=== PATIENT | male | born 1925 | race Caucasian/White ===

== ENCOUNTER 2016-07-30 23:29 | Inpatient (IN) | payer MEDICARE, OTHER ==
--- NOTE | ~2016-07-30 | DS ---
Unit #: [id number] #: [id number] Patient: JOHN SANTOS [id number] [address] [address] [id number] MR#: [id number] NAME: JOHN SANTOS ROOM: 338 Age: 89 Sex: M Admission Date: 07/31/2016 : 1925 Discharge Date: 08/03/2016 Attending Physician: Paul Juarez M.D. Primary Care Physician: Roberto Elliott M.D. DISCHARGE SUMMARY DISCHARGE DIAGNOSES 1. Sustained ventricular tachycardia. 2. 2D echocardiogram 07/31/2016 revealed severe dilated cardiomyopathy with a left ventricular ejection fraction of 15% to 20%. Inferior wall akinesis. Moderately dilated left ventricle. Mildly dilated left atrium. Mildly enlarged right atrial size. Pacemaker lead noted. No evidence of pericardial effusion. 3. Coronary artery disease, status post cardiac catheterization on 08/02/2016 revealed left main normal. Left anterior descending with long stent extending from the ostium of the left anterior descending into the mid segment, widely patent. Distal half of the left anterior descending normal. First diagonal branch of left anterior descending caught in stent care home with a 90% ostial stenosis with the distal vessel being very small in caliber and non-bypassable. Second diagonal branch and septal perforators normal. Left circumflex normal. Right coronary artery with chronic occlusion. Dominant right coronary artery occluded at origin. Distal right coronary artery PDA and PLV branch filled by retrograde left to right collaterals. PDA and PLV branches will be considered adequate targets for bypass graft. Ramus normal. 4. 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 5. Previous percutaneous coronary intervention and stent to the proximal left anterior descending in 2002. 6. Permanent atrial fibrillation on chronic anticoagulation with Coumadin. Coumadin currently on hold. 7. History of permanent pacemaker secondary to sick sinus syndrome. 8. Hypertension. 9. Hyperlipidemia. 10. Hypothyroidism. 11. Chronic kidney disease. 12. Reformed tobacco abuse. DISCHARGE MEDICATIONS 1. Amiodarone 400 mg p.o. b.i.d. x5 days, then 200 mg p.o. b.i.d. 2. Tylenol 1000 mg p.o. p.r.n. for pain. 3. Zofran 4 mg IV q.4 p.r.n. for nausea. 4. Metoprolol succinate 50 mg p.o. b.i.d. 5. Atorvastatin 10 mg p.o. at bedtime. 6. Allopurinol 300 mg p.o. daily. 7. Aspirin 81 mg p.o. daily. 8. Percocet 5/325 mg, one to two tablets p.o. q.4 hours p.r.n. for pain. 9. Protonix 40 mg p.o. daily. 10. Levothyroxine 75 mcg p.o. daily. Unit #: [id number] #: [id number] Patient: JOHN SANTOS 11. Nitroglycerin 0.4 mg sublingual as needed for chest pain. HOSPITAL COURSE This is an 89-year-old white male well known to Dr. Juarez with a past medical history of coronary artery disease with old inferior lateral wall myocardial infarction, known to have a chronic occlusion of the right coronary artery. The patient had a PCI and stent in the LAD in 2002. The LAD was patent per cardiac catheterization in 2012. He does have a history of sick sinus syndrome and permanent pacemaker, permanent atrial fibrillation, previously on Coumadin, hypertension, hyperlipidemia, hypothyroidism and chronic kidney disease. He presented to [facility] on 07/31/2016, with complaints of a near syncopal episode. The patient was very lightheaded and had an unsteady gait. He also was short of breath. He came close to loss of consciousness. EMS was dispatched and he was brought to the emergency department. Initial labs revealed a creatinine of 1.7 with a BUN of 20. Potassium was 4.2. Cardiac enzymes were negative. BNP was 187 and there was no evidence of congestive heart failure. Chest x-ray reveals moderate cardiac enlargement but nothing acute. CT of the head revealed no acute findings. Electrocardiogram revealed a ventricular paced rhythm with underlying atrial fibrillation. His permanent pacemaker was interrogated and revealed a seven minute episode of sustained ventricular tachycardia at 227 beats/minute. The patient was place don an amiodarone drip. He was recommended for a cardiac catheterization. Cardiac catheterization reveals a chronic occlusion of the right coronary artery. There was a patent stent in the mid LAD. There was a small first diagonal branch cut in stent care home with a 90% ostial stenosis. Ejection fraction was calculated at 10% to 15%. Metoprolol was increased. His amiodarone was switched to oral dosing. Electrophysiology was consulted and the patient is scheduled to have an upgrade of permanent pacemaker to an AICD. He will be transferred to [facility] later today for AICD. Dr. Neff is the accepting physician. The plan has been discussed with the patient and he verbalizes understanding. Labs currently reveal a creatinine of 1.5 with a BUN of 21. Electrolytes are stable. Cardiac enzymes were mildly elevated at 0.13 but decreased to 0.10. TSH is normal at 1.89. The patient's INR is 1.3. No Lovenox has been given and his Coumadin is on hold. DIAGNOSTIC STUDIES LABORATORY: White blood cell count 8, hemoglobin 14.8, hematocrit 44.6, platelets 167, sodium 135, potassium 3.9, chloride 106, CO2 25, BUN 21, creatinine 1.5, glucose 97. Troponin 0.13 and 0.10. BNP 187, total cholesterol 146, triglycerides 112, LDL 89, HDL 35, TSH 1.89, INR 1.3. IMAGING: CT of the head without contrast reveals no acute findings. Mild chronic ischemic changes in the deep white matter bilaterally. Paranasal sinusitis. Chest x-ray reveals no acute findings. Moderate cardiac enlargement. CARDIOVASCULAR: Telemetry and EKG reveals an AV paced rhythm. PHYSICAL EXAMINATION VITAL SIGNS: Temperature 97.9, pulse 74, blood pressure 142/84. CONSTITUTIONAL: This is an 89-year-old white male in no acute distress. SKIN: Warm and dry. NECK: Supple. No jugular venous distention. No hepatojugular reflux. Unit #: [id number] #: [id number] Patient: JOHN SANTOS Normal carotid upstrokes. No carotid bruits auscultated. HEART: S1 and S2. No murmurs, rubs or gallops. LUNGS: Bilateral breath sounds have good air entry throughout all lung fitzgerald. Respirations even and unlabored. No rales, rhonchi, or wheezes. ABDOMEN: Soft, nontender, and nondistended. Positive bowel sounds auscultated x4 quadrants. No ascites noted. EXTREMITIES: Bilateral extremities have no pretibial pitting edema. DP and PT pulses 2+. Capillary refill less than three seconds. Calf site without hematoma. DISCHARGE INSTRUCTIONS 1. The patient will be transferred to [facility] today for a pacemaker exchange and AICD. 2. He is currently on oral amiodarone and beta charles for ventricular tachycardia. 3. He is on an aspirin and statin. No FRANCESCA or ARB has been prescribed due to chronic kidney disease. 4. The patient's INR is 1.3 off Coumadin. 5. He is stable for transfer and will be followed by our partner, Dr. Carballo, upon arrival to [facility]. Dictated by... Nataly Rock APRN for Per Castañeda TD: 08/03/2016 11:37 JOB #: [id number] DISCHARGE SUMMARY Page 1 of 1 X X DISCHARGE SUMMARY
--- NOTE | ~2016-07-30 | CR72 ---
[facility] A Service of [facility] RADIOLOGY TEXT RESULTS PATIENT: JOHN SANTOS LOCATION: [facility] 338- : [birth year] UNIT #: [id number] AGE: [address]: Paul Juarez MD SEX: M ORDER DR: [id number] [facility] [address] [facility]. [place], [place] [address] [id number] I MR#: [id number] #: [id number] NAME: JOHN SANTOS. : 1925 SEX: M STUDY DATE/TIME: 07/30/2016 22:03 UNIT: [address] ROOM: [facility] STUDY DESCRIPTION: CR Chest Single View Portable Attending Physician: Paul Juarez M.D. Ordering Physician: Serene Amaya M.D. Primary Care Physician: Roberto Elliott M.D. MEDICAL IMAGING REPORT This report is preliminary unless electronic signature is present EXAM Portable chest HISTORY Shortness of air and syncope today. FINDINGS Moderate cardiac enlargement. Normal pulmonary vascularity. No pulmonary infiltrates or effusions. Left subclavian pacer leads extend into the right atrium and right ventricle. Mild left lower thoracic curve. IMPRESSION 1. No acute findings. 2. Moderate cardiac enlargement. Dictated by... Cristofer Larry M.D. THIS IS AN ELECTRONICALLY VERIFIED REPORT Cristofer Larry M.D. at 07/31/2016 4:00 PM Miguel Angel TD: 07/31/2016 09:14 JOB #: [id number] MEDICAL IMAGING REPORT Page 1 of 1 COPY
--- NOTE | ~2016-07-30 | EKG ---
PATIENT: JOHN SANTOS UNIT #: [id number] Ventricular Rate: 69 BPM Atrial Rate: 70 BPM QRS Duration: 182 ms Q-T Interval: 532 ms QTC Calculation(Bezet): 570 ms Calculated R [place]: -67 degrees Calculated T [place]: 48 degrees Diagnosis Line: Ventricular-paced rhythm Diagnosis Line: Abnormal ECG Diagnosis Line: No previous ECGs available Diagnosis Line: Confirmed by TRISTEN ROMAN MD ([id number]) on 08/01/2016 Diagnosis Line: 9:11:28 PM INTERPRETING MD: JESSIE ARORA
--- NOTE | ~2016-07-30 | EKG ---
PATIENT: JOHN SANTOS UNIT #: [id number] Ventricular Rate: 68 BPM Atrial Rate: 68 BPM P-R Interval: 80 ms QRS Duration: 190 ms Q-T Interval: 508 ms QTC Calculation(Bezet): 540 ms P [place]: 111 degrees Calculated R [place]: -39 degrees Calculated T [place]: 136 degrees Diagnosis Line: Electronic ventricular pacemaker Diagnosis Line: When compared with ECG of 30-JUL-2016 21:30, Diagnosis Line: (unconfirmed) Diagnosis Line: No significant change was found Diagnosis Line: Confirmed by JOSE MIXON MD ([id number]) on 07/31/2016 Diagnosis Line: 10:33:24 PM INTERPRETING MD: ORAL ARORA
--- NOTE | ~2016-07-30 | HP ---
Unit #: [id number] #: [id number] Patient: JOHN SANTOS [id number] [address] [place], [place] [address] [id number] I MR#: [id number] NAME: JOHN SANTOS. ROOM: 338 Age: 89 Sex: M Admission Date: 07/31/2016 : 1925 Attending Physician: Paul Juarez M.D. Primary Care Physician: Roberto Elliott M.D. HISTORY AND PHYSICAL HISTORY OF PRESENT ILLNESS This is an 89-year-old white male who is well known to Dr. Juarez who has a history of having an old inferolateral wall IN and found to have a chronic occlusion in the RCA and had PCI and stent to the proximal LAD back in 2002. Patient's last cardiac cath was back in 2012 that showed LVEF was down to 20% to 30%. He had distal left main 50% stenosis, his LAD stent was patent, and he continued to show the chronic RCA occlusion. He did have collaterals. He has a permanent pacemaker. He has permanent atrial fibrillation and has been on anticoagulation. He has hypothyroidism, hypertension, and chronic kidney disease. Patient came in with a near syncopal episode. According to patient, he took his garbage out yesterday afternoon and was walking back. He said he began to feel very lightheaded and had an unsteady gait. He had to sit down in his garage. He said then he started to feel very dyspneic. He said he continued to feel lightheaded and weak and with the dyspnea, he said he thought he was going to pass out or was feeling very poorly. He managed to get some nitroglycerin out of his pocket. He took one, and over the course of about five to 10 minutes, his overall status improved. In the meantime, he had called 911, and also his son had come to the home. He was brought in for further evaluation and management. He denies having any chest pain or pain in his neck, bilateral jaw, shoulders, arms, or elbows. He did not feel any palpitations. He did say that when he was having the spell, he could tell he was trying to urinate and was unable to control his voiding but did not have any bowel movement or any seizure activity. He has not had any recent cough, fever, or chills and no abdominal or back pain. Patient was admitted for further evaluation and workup. PAST MEDICAL HISTORY 1. Old inferolateral wall IN with chronic occlusion in the RCA, status post PCI and stent to the proximal LAD in 2002. 2. On last cardiac cath in 2012, LVEF was down to 20% to 30% with other findings of distal left main 50% stenosis, LAD stent was patent, circumflex with no significant narrowing, and the RCA was chronically occluded with collaterals. 3. Permanent atrial fibrillation, on Coumadin. 4. Permanent pacemaker secondary to sick sinus syndrome. 5. Hypothyroidism. 6. Hypertension. 7. Hyperlipidemia. 8. Reformed smoker. 9. Chronic kidney disease. Unit #: [id number] #: [id number] Patient: JOHN SANTOS PAST SURGICAL HISTORY 1. Status post PCI and stent to the proximal LAD in 2002. 2. Bilateral cataracts. 3. Permanent pacemaker insertion. HOME MEDICATIONS 1. Warfarin 2.5 mg 1 tablet on Saturday, Saturday, and Saturday. 2. Levothyroxine 75 mcg p.o. daily. 3. Metoprolol 50 mg p.o. in the morning. 4. Metoprolol 25 mg in the evening. 5. Nitrostat 0.4 mg sublingual p.r.n. for chest pain. 6. Omeprazole 20 mg p.o. daily. 7. Simvastatin 20 mg p.o. daily. 8. Acetaminophen 1000 mg p.o. at bedtime. 9. Allopurinol 300 mg p.o. daily. ALLERGIES No known drug allergies. SOCIAL HISTORY Patient lives in his home alone. He was about three years ago. He stays fairly active for his age. He continues to drive. He does his yard work and even pushed a small lawnmower about four days ago without any difficulty. He quit smoking about 40 years ago. No alcohol or illicit drug abuse. FAMILY HISTORY Noncontributory. REVIEW OF SYSTEMS CONSTITUTIONAL: Denies fever or chills. No recent weight gain or weight loss. HEENT: Denies headache but has dizziness. No visual or hearing changes. NECK: No lymphadenopathy or thyromegaly and no difficulty swallowing. CARDIOVASCULAR: Denies chest pain, denies palpitations, and denies increased lower extremity edema. PULMONARY: Shortness of breath with the episode. Denies paroxysmal nocturnal dyspnea and orthopnea. GASTROINTESTINAL: Denies nausea, vomiting, diarrhea, or abdominal pain. NEUROLOGICAL: No focal weakness. PHYSICAL EXAMINATION GENERAL: On exam, Mr. Santos is an 89-year-old white male in no acute respiratory distress. He is awake, alert, and oriented. VITAL SIGNS: Blood pressure lying is 120/62 with a heart rate of 69. Blood pressure sitting 125/62 with a heart rate of 69. Blood pressure 125/62 with a heart rate of 69. Respirations 18, temperature 97.8, and O2 saturations 98% on room air. NECK: Trachea midline. No thyromegaly or lymphadenopathy. Normal carotid upstrokes. No jugular venous distention. HEART: S1 and S2, regular rate and rhythm. Systolic murmur over aortic region, left sternal border. LUNGS: Diminished, otherwise clear. ABDOMEN: Soft and nontender. Positive bowel sounds present. No hepatosplenomegaly. EXTREMITIES: Pedal pulses are palpable. No pedal edema. Unit #: [id number] #: [id number] Patient: JOHN SANTOS DIAGNOSTIC STUDIES LABORATORY: Glucose is 118, BUN 20, creatinine 1.7, eGFR 35, sodium 142, potassium 4.2, chloride 108, CO2 of 24, and calcium is 9.2. WBC 6.6, hemoglobin 14.6, hematocrit 44.3, and platelets 169,000. Initial cardiac enzymes: CK-MB is 1.7 and troponin less than 0.05; CK-MB is 4.3 and troponin less than 0.05. BNP is 187. IMAGING: Chest x-ray shows no acute finding and moderate cardiac enlargement. CT of the head without contrast shows nothing acute. CARDIOLOGY: EKG shows ventricular paced rhythm and underlying probable atrial fibrillation. IMPRESSION 1. Near syncope of questionable etiology, questionable ventricular arrhythmias. 2. Dyspnea. 3. History of chronic systolic congestive heart failure with left ventricular ejection fraction of 20% to 30% on last cardiac catheterization in 2012. 4. 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 5. Permanent atrial fibrillation, on anticoagulation. 6. Permanent pacemaker. 7. Hypothyroidism. 8. Hypertension. 9. Hyperlipidemia. 10. Chronic kidney disease. 11. Reformed smoker. PLAN 1. Will have patient's permanent pacemaker interrogated to evaluate for any ventricular arrhythmias that occurred during this episode. 2. Continue to monitor orthostatic vital signs which so far have been unremarkable. 3. Will do a 2D echo to reevaluate LV function and valves. The patient's last echo was documented back in 2012. 4. [address] Juarez examined and interviewed the patient, he feels that his symptoms may have been precipitated by some kind of ventricular arrhythmia or it could be secondary to some progression of his left main stenosis that was found to be 50% in 2013 cath. 5. On exam, there are no signs or symptoms of acute congestive heart failure. 6. Continue the patient on his current medications including his beta charles and statin. 7. Will obtain a fasting lipid profile and TSH and evaluate. 8. Will further evaluate. 9. Patient's INR is 2.2, so he is fully anticoagulated for his atrial fibrillation and will not need any Lovenox due to him being in his therapeutic range. Will continue to monitor. 10. Will continue the patient on nitrate and also on aspirin. 11. Further recommendations pending per Dr. Juarez. 1. Dictated by Erin Neumann A.P.R.N. for Paul Juarez M.D. Unit #: [id number] #: [id number] Patient: JOHN SANTOS CEC/am TD: 07/31/2016 18:32 JOB #: [id number] HISTORY AND PHYSICAL Page 1 of 1 X Erin Neumann APRN HISTORY AND PHYSICAL
--- NOTE | ~2016-07-30 | EKG ---
PATIENT: JOHN SANTOS UNIT #: [id number] Ventricular Rate: 79 BPM Atrial Rate: 79 BPM P-R Interval: 146 ms QRS Duration: 240 ms Q-T Interval: 542 ms QTC Calculation(Bezet): 621 ms Calculated R [place]: 151 degrees Calculated T [place]: 123 degrees Diagnosis Line: AV sequential or dual chamber electronic pacemaker Diagnosis Line: When compared with ECG of 31-JUL-2016 14:17, Diagnosis Line: Vent. rate has increased BY 11 BPM Diagnosis Line: Confirmed by RC ESTES MD ([id number]) on Diagnosis Line: 08/05/2016 2:07:58 PM INTERPRETING MD: GENET
--- NOTE | ~2016-07-30 | CT71 ---
[facility] A Service of [facility] / [facility] RADIOLOGY TEXT RESULTS PATIENT: JOHN SANTOS LOCATION: [facility] 338- : [birth year] UNIT #: [id number] AGE: [address]: Paul Juarez MD SEX: M ORDER DR: [id number] [address] [place], [place] [address] [id number] I MR#: [id number] Acc #: [id number] NAME: JOHN SANTOS. : 1925 SEX: M STUDY DATE/TIME: 07/30/2016 22:07 UNIT: [address] ROOM: [facility] STUDY DESCRIPTION: CT Head Wo Contrast Attending Physician: Paul Juarez M.D. Ordering Physician: Serene Amaya M.D. Primary Care Physician: Roberto Elliott M.D. MEDICAL IMAGING REPORT This report is preliminary unless electronic signature is present EXAM CT brain without contrast HISTORY Syncope today. Weakness. TECHNIQUE This CT exam was performed with one or more of the following radiation dose reduction techniques: automatic exposure control, adjustment of mA and/or kV according to patient size, and iterative reconstruction. FINDINGS CT brain without contrast demonstrates mild generalized cerebral and cerebellar cortical atrophy and mild chronic ischemic changes in the deep white matter bilaterally. No intracranial hemorrhage, mass or edema. No midline shift or focal atrophy or extraaxial fluid collection. Extensive mucosal thickening in left ethmoid air cells and moderate mucosal thickening in right ethmoid air cells and in the left maxillary sinus and mild mucosal thickening in the left frontal sinus. IMPRESSION 1. No acute intracranial findings. 2. Mild chronic ischemic changes in the deep white matter bilaterally. 3. Paranasal sinusitis. Dictated by... Cristofer Larry M.D. THIS IS AN ELECTRONICALLY VERIFIED REPORT Cristofer Larry M.D. at 07/31/2016 3:59 PM Miguel Angel TD: 07/31/2016 09:01 [facility] A Service of [facility] & [facility] RADIOLOGY TEXT RESULTS PATIENT: JOHN SANTOS LOCATION: [facility] 338-01 : [birth year] UNIT #: [id number] AGE: [address]: Paul Juarez MD SEX: M ORDER DR: JOB #: [id number] MEDICAL IMAGING REPORT Page 1 of 1 COPY
--- NOTE | ~2016-07-30 | EKG ---
PATIENT: JOHN SANTOS UNIT #: [id number] Ventricular Rate: 77 BPM Atrial Rate: 77 BPM P-R Interval: 154 ms QRS Duration: 180 ms Q-T Interval: 540 ms QTC Calculation(Bezet): 611 ms P [place]: 59 degrees Calculated R [place]: 146 degrees Calculated T [place]: 92 degrees Diagnosis Line: AV sequential or dual chamber electronic pacemaker Diagnosis Line: When compared with ECG of 01-AUG-2016 06:11, Diagnosis Line: (unconfirmed) Diagnosis Line: Vent. rate has decreased BY 2 BPM Diagnosis Line: Confirmed by JOSE MIXON MD ([id number]) on 08/07/2016 Diagnosis Line: 10:21:59 PM INTERPRETING MD: ORAL ARORA
[2016-07-30 22:39] LABS: BASOPHIL# 0.1 X10e3 (0-0.3); EOSINOPHIL# 0.4 X10e3 (0-0.7); EOSINOPHIL% 3.8 % (0.0-7.0); HEMATOCRIT 45.5 % (38.0-50.0); HEMOGLOBIN 14.9 gm/dL (13.0-16.0); LYMPHOCYTE# 1.3 X10e3 (1.0-3.5); LYMPHOCYTE% 11.9 % (17.0-45.0); MEAN CORPUSCULAR HEMOGLOBIN 28.9 PG (28-34); MEAN CORPUSCULAR HGB CONC 32.8 g/dL (30-36); MEAN PLATELET VOLUME 9.1 FL (6.5-11.5); MONOCYTE# 0.8 X10e3 (0-1.0); MONOCYTE% 7.3 % (3.0-12.0); NEUTROPHIL# 8.5 X10e3 (1.5-7.1); PLATELET COUNT 183 X10e3 (140-420); RED BLOOD COUNT 5.17 X10e (3.90-5.60); RED CELL DISTRIBUTION WIDTH 15.7 % (11.0-15.5); WHITE BLOOD COUNT 11.2 X10e3 (4.0-10.5)
[2016-07-30 22:40] LABS: DIFF IND NO
[2016-07-30 22:57] LABS: INR 2.3; PROTHROMBIN TIME (PATIENT) 25.2 SECONDS (9.6-11.5)
[2016-07-30 23:10] LABS: BUN/CREATININE RATIO 11.76; CALCIUM SERUM 9.2 mg/dL (8.4-10.2); CREATININE SERUM 1.7 mg/dL (0.6-1.4); POTASSIUM 4.2 mmol/L (3.5-5.1)
[2016-07-30 23:10] LABS: POC - CKMB 4.3 ng/mL (0.0-7.9); POC - TROPONIN <0.05 ng/mL (<=0.05)
[~2016-07-30 23:29] MED LIST: ASPIRIN; CARDIZEM CD; COUMADIN; CRESTOR; LORTAB 5/500 TA1 TA1 PO; METOPROLOL SUCC25 MG PO; METOPROLOL TART25 MG PO; NITROGLYGERIN0.4 MG SL; SYNTHROID; ZOCOR PO; ZYLOPRIM
[2016-07-30] MEDS ORDERED: ZYLOPRIM PO (23:48)
[2016-07-30] MEDS ORDERED: JANTOVEN2.5 MG PO (23:49)
[2016-07-30] MEDS ORDERED: LEVOTHYROXINE75 MCG PO (23:50)
[2016-07-30] MEDS ORDERED: METOPROLOL SUCC25 MG PO (23:51)
[2016-07-30] MEDS ORDERED: METOPROLOL SUCC50 MG PO (23:51)
[2016-07-30] MEDS ORDERED: NITROSTAT0.4 MG SL (23:52)
[2016-07-30] MEDS ORDERED: OMEPRAZOLE20 M2 PO (23:52)
[2016-07-30] MEDS ORDERED: SIMVASTATIN20 MG PO (23:53)
[2016-07-30] MEDS ORDERED: ACETAMINOPHEN PO (23:54)
[2016-07-31] MEDS ORDERED: ALLOPURINOL300 MG PO (00:43)
[2016-07-31 00:49] LABS: POC - CKMB 1.7 ng/mL (0.0-7.9); POC - TROPONIN <0.05 ng/mL (<=0.05)
[2016-07-31 10:53] LABS: BASOPHIL# 0.1 X10e3 (0-0.3); BASOPHIL% 1.1 % (0-2.5); EOSINOPHIL# 0.4 X10e3 (0-0.7); EOSINOPHIL% 6.7 % (0.0-7.0); HEMATOCRIT 44.3 % (38.0-50.0); HEMOGLOBIN 14.6 gm/dL (13.0-16.0); LYMPHOCYTE# 1.6 X10e3 (1.0-3.5); LYMPHOCYTE% 23.9 % (17.0-45.0); MEAN CELL VOLUME 87.8 FL (83-96); MEAN PLATELET VOLUME 9.4 FL (6.5-11.5); MONOCYTE# 0.5 X10e3 (0-1.0); MONOCYTE% 7.3 % (3.0-12.0); PLATELET COUNT 169 X10e3 (140-420); RED BLOOD COUNT 5.05 X10e (3.90-5.60); RED CELL DISTRIBUTION WIDTH 15.7 % (11.0-15.5); WHITE BLOOD COUNT 6.6 X10e3 (4.0-10.5)
[2016-07-31 11:05] LABS: DIFF IND NO
[2016-07-31 11:10] LABS: INR 2.2; PROTHROMBIN TIME (PATIENT) 23.3 SECONDS (9.6-11.5)
[2016-07-31 11:53] LABS: %MB 4.4 % (0.0-4.0); MB 5.9 ng/ml
[2016-08-01 06:32] LABS: HEMATOCRIT 43.9 % (38.0-50.0); HEMOGLOBIN 14.4 gm/dL (13.0-16.0); MEAN CELL VOLUME 88.6 FL (83-96); MEAN CORPUSCULAR HGB CONC 32.7 g/dL (30-36); MEAN PLATELET VOLUME 9.5 FL (6.5-11.5); RED BLOOD COUNT 4.95 X10e (3.90-5.60); RED CELL DISTRIBUTION WIDTH 15.4 % (11.0-15.5); WHITE BLOOD COUNT 6.5 X10e3 (4.0-10.5)
[2016-08-01 06:51] LABS: INR 1.7; PROTHROMBIN TIME (PATIENT) 18.7 SECONDS (9.6-11.5)
[2016-08-01 07:04] LABS: BUN/CREATININE RATIO 11.33; CALCIUM SERUM 8.6 mg/dL (8.4-10.2); CREATININE SERUM 1.5 mg/dL (0.6-1.4); GLOM FILT RATE Estimated 40.7 mL/min (>60); MAGNESIUM 1.9 mg/dL (1.6-3.0); POTASSIUM 3.5 mmol/L (3.5-5.1)
[2016-08-01 07:08] LABS: CHOLESTEROL 146 mg/dL (0-200); HDL CHOLESTEROL 35 mg/dL (29-75); LDL CHOLESTEROL 89 mg/dL (-130); LDL/HDL RATIO 3 RATIO (0-4); TRIGLYCERIDES 112 mg/dL (10-160)
[2016-08-01 07:23] LABS: %MB 3.2 % (0.0-4.0); MB 4.5 ng/ml
[2016-08-02 06:31] LABS: HEMATOCRIT 45.1 % (38.0-50.0); HEMOGLOBIN 14.6 gm/dL (13.0-16.0); MEAN CELL VOLUME 88.1 FL (83-96); MEAN CORPUSCULAR HEMOGLOBIN 28.6 PG (28-34); MEAN CORPUSCULAR HGB CONC 32.5 g/dL (30-36); MEAN PLATELET VOLUME 9.8 FL (6.5-11.5); RED BLOOD COUNT 5.12 X10e (3.90-5.60); RED CELL DISTRIBUTION WIDTH 15.8 % (11.0-15.5); WHITE BLOOD COUNT 8.2 X10e3 (4.0-10.5)
[2016-08-02 06:54] LABS: INR 1.5; PARTIAL THROMBOPLASTIN TIME 30.3 SECONDS (23.5-31.3); PROTHROMBIN TIME (PATIENT) 15.9 SECONDS (9.6-11.5)
[2016-08-02 07:11] LABS: BUN/CREATININE RATIO 13.57; CREATININE SERUM 1.4 mg/dL (0.6-1.4); GLOM FILT RATE Estimated 44.2 mL/min (>60); POTASSIUM 3.8 mmol/L (3.5-5.1)
[2016-08-03 07:06] LABS: HEMATOCRIT 44.6 % (38.0-50.0); HEMOGLOBIN 14.8 gm/dL (13.0-16.0); MEAN CELL VOLUME 87.8 FL (83-96); MEAN CORPUSCULAR HEMOGLOBIN 29.2 PG (28-34); MEAN CORPUSCULAR HGB CONC 33.3 g/dL (30-36); MEAN PLATELET VOLUME 9.6 FL (6.5-11.5); RED BLOOD COUNT 5.08 X10e (3.90-5.60); RED CELL DISTRIBUTION WIDTH 15.3 % (11.0-15.5)
[2016-08-03 07:15] LABS: INR 1.3; PROTHROMBIN TIME (PATIENT) 14.3 SECONDS (9.6-11.5)
[2016-08-03 08:01] LABS: CREATININE SERUM 1.5 mg/dL (0.6-1.4); GLOM FILT RATE Estimated 40.7 mL/min (>60); POTASSIUM 3.9 mmol/L (3.5-5.1)
== END 2016-08-03 17:02 | DRG 287 ==
LOC: CED 23:29 → CEDOF 07-31 00:35 → C3A PCU 07-31 01:38
PROVIDERS: Emergency Medicine; Internal Medicine Cardiovascular Disease; Nurse Practitioner
PROC: B24BZZZ Ultrasonography of Heart with Aorta (ICD-10-PCS; 2016-07-31)
PROC: 4A023N7 Measurement of Cardiac Sampling and Pressure, Left Heart, Percutaneous Approach (ICD-10-PCS; principal; 2016-08-02)
PROC: B215YZZ Fluoroscopy of Left Heart using Other Contrast (ICD-10-PCS; 2016-08-02)
PROC: B211YZZ Fluoroscopy of Multiple Coronary Arteries using Other Contrast (ICD-10-PCS; 2016-08-02)
DX: I47.2 Ventricular tachycardia (principal); I42.0 Dilated cardiomyopathy; I13.0 Hypertensive heart and chronic kidney disease with heart failure and stage 1 through stage 4 chronic kidney disease, or unspecified chronic kidney disease; I50.22 Chronic systolic (congestive) heart failure; I25.10 Atherosclerotic heart disease of native coronary artery without angina pectoris; Z95.5 Presence of coronary angioplasty implant and graft; I25.2 Old myocardial infarction; I48.2 Chronic atrial fibrillation; Z79.01 Long term (current) use of anticoagulants; Z95.0 Presence of cardiac pacemaker; N18.9 Chronic kidney disease, unspecified; Z87.891 Personal history of nicotine dependence; R55 Syncope and collapse; I49.5 Sick sinus syndrome; E03.9 Hypothyroidism, unspecified; E78.5 Hyperlipidemia, unspecified
CPT/HCPCS: 36415; 70450; 71010; 80048; 80061; 82550; 82553; 82947; 83735; 83880; 84443; 84484; 85025; 85027; 85379; 85610; 85730; 93005; 93306; 99291; C1769; C1887; C1894; J0282; J1644; J2250; J3010